=== PATIENT | female | born 1930 | race Caucasian/White ===

== ENCOUNTER → 2016-12-12 | Outpatient (CLI) | payer MEDICARE | END | disposition disaster alternative care site (69) | LOC: GRAD 14:05 | DX: R91.8 Other nonspecific abnormal finding of lung field (principal) ==

== ENCOUNTER → 2017-01-22 | Outpatient (CLI) | payer MEDICARE | END | disposition disaster alternative care site (69) | LOC: GRAD 15:22 | DX: R91.8 Other nonspecific abnormal finding of lung field (principal); J98.11 Atelectasis; I70.90 Unspecified atherosclerosis; J98.4 Other disorders of lung ==